=== PATIENT | male | born 1985 | race African-American/Black ===

== ENCOUNTER 2016-03-12 00:50 | Inpatient (IN) | payer BC ==
--- NOTE | 2016-03-12 00:55 | PDOC ---
History of Present Illness - General Chief Complaint: Hematuria Stated Complaint: "I HAVE BLOOD IN MY STOOL AND URINE" Time Seen by Provider: 03/12/16 00:55 History Source: Patient Exam Limitations: No Limitations - History of Present Illness Initial Comments: 03/12/16 01:00 This is a 31-year-old male who comes in complaining of hematuria and blood in his stool. Patient did said that he went to the gym 2 days ago did a very intense workout and the next day saw a little bit of discoloration of his urine but then today it was bloody appearing and when patient went to the bathroom and had a bowel movement along with the urine he was also concerned that there might be some blood in the stool. Patient denies any fever, chills, frequency, dysuria, abdominal pain. Patient denies history of similar episodes in the past. PAST MEDICAL HISTORY: no significant history PAST SURGICAL HISTORY: no significant history FAMILY HISTORY: no pertinant history SOCIAL HISTORY: Pt lives with family and is employed. MEDICATIONS: reviewed ALLERGIES: As per nursing notes Review of Systems General: No fevers or chills, no weakness, no weight loss HEENT: No change in vision. No sore throat,. No ear pain CardioVascular: No chest pain or shortness of breath Respiratory:No cough, or wheezing. Gastrointestinal: no nausea, vomitting, diarrhea or constipation, No rectal bleeding Genitourinary: No dysuria, hematuria, or frequency Musculoskeletal: No joint or muscle pain or swelling Neurologic: No headache, vertigo, dizziness or loss of consciousness Psychiatric: nor depression Skin: No rashes or easy bruising Endocrine: no increased thirst or abnormal weight change Allergic: no skin or latex allergy All other systems reviewed and normal Exam: General: Well-nourished well-developed individual, no acute distress HEENT: Throat: Normal, tonsils normal, no erythema or exudate Neck: Supple, no meningeal signs, no lymphadenopathy Eyes::Pupils equal reactive and round, extraocular motion intact Chest: Nontender to palpation Cardiac: S1-S2 normal, regular rate and rhythm, no murmurs rubs or gallops Respiratory: Lungs clear to auscultation bilateral Abdomen: Soft, nondistended, normal bowel sounds, nontender to palpation diffusely rectal: non tender brown stool. Extremities: Warm, dry, no cyanosis, clubbing, or edema Skin: No rashes Neuro: Alert and oriented x3, nonfocal exam, grossly intact, normal gait Psych: Normal mood and affect EKG normal sinus rhythm at a rate of 71, normal intervals no acute ST-T wave changes, normal EKG 03/12/16 04:10 Assessment and plan: This is a 31-year-old male who comes in planning of blood in his urine post a intense workout in the gym. Patient CPK is markedly elevated secondary to rhabdomyolysis from his workup. Patient's AST and ALT are also elevated secondary to the rhabdo. Patient had a troponin of 0.09 that was reported this likely is a false positive secondary to the rhabdo. Patient needs an admission for IV hydration. Patient will be admitted to the hospitalist service Past History - Past Medical History Allergies/Adverse Reactions: Allergies Allergy/AdvReac Type Severity Reaction Status Date / Time No Known Allergies Allergy Unverified 03/01/15 19:21 Home Medications: Ambulatory Orders Ibuprofen [Motrin -] 800 mg PO TID #30 tablet 02/28/15 - Immunization History Immunization Up to Date: Yes - Psycho/Social/Smoking Cessation Hx Anxiety: No Suicidal Ideation: No Smoking History: Current some day smoker Have you smoked in the past 12 months: Yes Number of Cigarettes Smoked Daily: 2 'Breaking Loose' booklet given: 02/28/15 Hx Alcohol Use: No Drug/Substance Use Hx: No Substance Use Type: None ED Treatment Course - LABORATORY CBC & Chemistry Diagram: 03/12/16 01:00 03/12/16 01:00 *DC/Admit/Observation/Transfer Diagnosis at time of Disposition: Hematuria Rhabdomyolysis Qualifiers: Rhabdomyolysis type: non-traumatic Qualified Code(s): M62.82 - Rhabdomyolysis - Discharge Dispostion Disposition: HOME Condition at time of disposition: Good Admit: Yes
[2016-03-12 00:58] VITALS: BMI 34.7
[2016-03-12 02:16] LABS: BASOPHIL 0.3 % (0-2.0); EOSINOPHIL 1.2 % (0-4.5); MCH 29.2 pg (25.7-33.7); MCHC 32.7 g/dl (32.0-35.9); MEAN CELL VOLUME 89.2 fl (80-96); MEAN PLT VOLUME 9.3 fl (7.5-11.1); NEUTROPHILS 66.3 % (42.8-82.8); PLATELET COUNT 284 K/MM3 (134-434); RDW 14.9 % (11.9-15.9); STOOL FOR OCCULT BLOOD NEGATIVE (NEGATIVE); WHITE BLOOD COUNT 9.3 K/mm3 (4.0-10.0)
[2016-03-12 02:19] LABS: URINE APPEARANCE CLEAR; URINE BILIRUBIN NEGATIVE (NEGATIVE); URINE COLOR AMBER; URINE GLUCOSE (UA) NEGATIVE (NEGATIVE); URINE KETONE NEGATIVE (NEGATIVE); URINE LEUK ESTERASE NEGATIVE (NEGATIVE); URINE NITRITE NEGATIVE (NEGATIVE); URINE UROBILINOGEN NEGATIVE E.U./dl (0.2-1.0)
[2016-03-12 02:27] LABS: URINE BLOOD 3+ (NEGATIVE); URINE PROTEIN 2+ (NEGATIVE)
[2016-03-12 02:39] LABS: ALBUMIN 3.9 g/dl (3.4-5.0); ANION GAP 11 (8-16); CALCIUM 8.6 mg/dL (8.5-10.1); CO2 28 mmol/L (21-32); CREATININE 0.9 mg/dL (0.7-1.3); GLUCOSE,RANDOM 94 mg/dL (74-106); SGPT/ALT 118 U/L (12-78)
[2016-03-12 02:45] LABS: ALK PHOS 77 U/L (45-117); BILIRUBIN,TOTAL 0.4 mg/dL (0.2-1.0); TOT PROT 7.5 g/dl (6.4-8.2)
[2016-03-12 02:51] LABS: SGOT/AST 1042 U/L (15-37)
[2016-03-12 03:03] LABS: TROPONIN I 0.09 ng/ml (0.00-0.05)
[2016-03-12] MEDS ORDERED: SODIUM CHLORIDE 1,000 ML IV ONE (03:59)
[2016-03-12 04:08] LABS: URINE BACTERIA RARE /hpf (NONE SEEN); URINE RBC 6 /hpf (0-3); URINE WBC 3 /hpf (3-5)
--- NOTE | 2016-03-12 07:50 | HP ---
CHIEF COMPLAINT: I thought I saw blood in my urine. It was dark. PCP: None HISTORY OF PRESENT ILLNESS: 31 year-old male with no significant PMH came to the ED with a complaint of seeing blood his urine. Two days ago he went to the gym, the first time in a long time, and did a high-intensity workout with weights for two hours. Twenty- four hours later he felt soreness in his chest, arms, and legs and attributed it to the workout. Later in the day (yesterday afternoon), he noticed his urine was dark brown. Today he thought he saw blood in his urine and when he had a bowel movement he thought he saw blood in the stool so he came to the ED. Patient denies performance enhancing drugs, steroids, or any type of illicit drug use. ER course was notable for: (1) CPK >80,000 (2) BUN 9, Cr 0.9 (3) NS x 2L bolus given Recent Travel: no PAST MEDICAL HISTORY: None reported PAST SURGICAL HISTORY: None reported Social History: Smoking: current smoker Alcohol: 3-4 times per week Drugs: marijuana Family History: Allergies No Known Allergies Allergy (Unverified 03/01/15 19:21) HOME MEDICATIONS: None REVIEW OF SYSTEMS CONSTITUTIONAL: Absent: fever, chills, diaphoresis, generalized weakness, malaise, loss of appetite, weight change HEENT: Absent: rhinorrhea, nasal congestion, throat pain, throat swelling, difficulty swallowing, mouth swelling, ear pain, eye pain, visual changes CARDIOVASCULAR: Absent: chest pain, syncope, palpitations, irregular heart rate, lightheadedness , peripheral edema RESPIRATORY: Absent: cough, shortness of breath, dyspnea with exertion, orthopnea, wheezing, stridor, hemoptysis GASTROINTESTINAL: Absent: abdominal pain, abdominal distension, nausea, vomiting, diarrhea, constipation, melena, hematochezia GENITOURINARY: Present: dark-colored urine Absent: dysuria, frequency, urgency, hesitancy, hematuria, flank pain, genital pain MUSCULOSKELETAL: Present: full-body myalgias Absent: arthralgia, joint swelling, back pain, neck pain SKIN: Absent: rash, itching, pallor HEMATOLOGIC/IMMUNOLOGIC: Absent: easy bleeding, easy bruising, lymphadenopathy, frequent infections ENDOCRINE: Absent: unexplained weight gain, unexplained weight loss, heat intolerance, cold intolerance NEUROLOGIC: Absent: headache, focal weakness or paresthesias, dizziness, unsteady gait, seizure, mental status changes, bladder or bowel incontinence PSYCHIATRIC: Absent: anxiety, depression, suicidal or homicidal ideation, hallucinations. PHYSICAL EXAMINATION Vital Signs - 24 hr 03/12/16 06:14 Temperature 98.0 F Pulse Rate 74 Respiratory 18 Rate Blood Pressure 135/74 GENERAL: Awake, alert, and fully oriented, in no acute distress. HEAD: Normal with no signs of trauma. EYES: Pupils equal, round and reactive to light, extraocular movements intact, sclera anicteric, conjunctiva clear. No lid lag. EARS, NOSE, THROAT: Ears normal, nares patent, oropharynx clear without exudates. Moist mucous membranes. NECK: Normal range of motion, supple without lymphadenopathy, JVD, or masses. LUNGS: Breath sounds equal, clear to auscultation bilaterally. No wheezes, and no crackles. No accessory muscle use. HEART: Regular rate and rhythm, normal S1 and S2 without murmur, rub or gallop. ABDOMEN: Soft, nontender, not distended, normoactive bowel sounds, no guarding, no rebound, no masses. No hepatomegaly or splenomegaly. MUSCULOSKELETAL: Normal range of motion at all joints. No bony deformities or tenderness. No CVA tenderness. UPPER EXTREMITIES: 2+ pulses, warm, well-perfused. No cyanosis. No clubbing. Cap refill <2 seconds. No peripheral edema. LOWER EXTREMITIES: 2+ pulses, warm, well-perfused. No calf tenderness. No peripheral edema. NEUROLOGICAL: Cranial nerves II-XII intact. Normal speech. Normal gait. ASSESSMENT/PLAN: 31 year-old man with no significant PMH admitted for severe exercise-induced rhabdomyolysis. Severe exercise-induced rhabdomyolysis --CPK > 80,000 but renal function is stable --received 2 L NS in ED, give 2 more L then continue @ 150mL/hr --strict I&OIs, UOP goal is 150-200mL/hr --urine studies ordered --US kidneys ordered --renal consult requested --serial troponins --cmp and CPK q12h F/E/N Fluids: NS @ 150mL/hr Electrolytes: replete as indicated Nutrition: regular diet DVT prophylaxis: oob, ambulation Dispo: continues to require inpatient care. Full Code. Visit type - Emergency Visit Emergency Visit: Yes ED Registration Date: 03/12/16 Care time: The patient presented to the Emergency Department on the above date and was hospitalized for further evaluation of their emergent condition. - New Patient This patient is new to me today: Yes Date on this admission: 03/13/16 - Critical Care Critical Care patient: No
[2016-03-12] MEDS ORDERED: SODIUM CHLORIDE 1,000 ML IV STA ×3 (07:55→22:39)
[2016-03-12] MEDS: SODIUM CHLORIDE 1,000 ML IV SCH (08:00)
[2016-03-12] MEDS ORDERED: HEPARIN NA (PORCINE) 5,000 UNITS/ML 1ML VIAL SQ SCH (10:00)
[2016-03-12 10:30] LABS: URINE MARIJUANA THC NEGATIVE ng/ml (CUTOFF=50)
[2016-03-12 14:33] LABS: BASOPHIL 0.2 % (0-2.0); EOSINOPHIL 2.2 % (0-4.5); MCH 28.3 pg (25.7-33.7); MEAN CELL VOLUME 88.6 fl (80-96); MEAN PLT VOLUME 8.5 fl (7.5-11.1); NEUTROPHILS 57.9 % (42.8-82.8); PLATELET COUNT 283 K/MM3 (134-434); RDW 14.1 % (11.9-15.9); WHITE BLOOD COUNT 7.9 K/mm3 (4.0-10.0)
[2016-03-12 14:53] LABS: ALBUMIN 3.5 g/dl (3.5-5.0); BILIRUBIN,DIRECT 0.1 mg/dl (0.0-0.2); BILIRUBIN,TOTAL 0.5 mg/dl (0.2-1.0); TOT PROT 6.4 g/dl (6.4-8.3)
[2016-03-12 15:00] LABS: ACTIVATED PTT 25.9 SECONDS (24.0-38.9)
[2016-03-12 15:01] LABS: TROPONIN I 0.02 ng/ml (0.00-0.05)
[2016-03-12 15:05] LABS: INR 1.27 (0.82-1.09); PROTHROMBIN TIME (PATIENT) 13.8 SEC (10.2-13.0)
[2016-03-12 15:27] LABS: MAGNESIUM 1.7 mg/dL (1.8-2.4)
[2016-03-12 20:31] LABS: CALCIUM 8.4 mg/dl (8.4-10.2); CREATININE 0.9 mg/dl (0.6-1.3); MAGNESIUM 1.9 mg/dL (1.8-2.4)
--- NOTE | 2016-03-12 23:26 | HOSP ---
Subjective - Review of Symptoms Events since last encounter: Hospitalist Encounter Notified by primary RN that the patient's CK level - 90076, increased from 37834 drawn earlier in the day. Patient received 3L NS bolus, currently on maintenance fluids. Per RN, patient voided 300ml straw colored urine at 2000, then 250ml yellow clear urine at 2300. Arrived to room, patient is alert and awake, reports muscle fatigue and pain. Denies CP and SOB Discussed case with Dr. Alexandre, will continue maintenance fluids, monitor urine output, and repeat CMP in am. Physical Examination Vital Signs: Vital Signs Temperature 98.5 F 03/12/16 22:48 Pulse Rate 57 L 03/12/16 22:48 Respiratory Rate 18 03/12/16 22:48 Blood Pressure 135/82 03/12/16 22:48 O2 Sat by Pulse Oximetry (%) 99 03/12/16 22:48 Constitutional: Yes: Well Nourished, No Distress, Calm Respiratory: Yes: WNL, Regular, CTA Bilaterally Gastrointestinal: Yes: Hypoactive Bowel Sounds, Tenderness (generalized) Renal/: Yes: CVA Tenderness - Left Musculoskeletal: Yes: Muscle Pain Neurological: Yes: WNL, Alert, Oriented, Cran Nerves II-XII Intact Psychiatric: Yes: WNL, Alert, Oriented Labs: CBC, BMP 03/12/16 14:10 03/12/16 20:00 Laboratory Results - last 24 hr 03/12/16 03/12/16 03/12/16 01:00 01:00 01:00 WBC 9.3 RBC 4.88 Hgb 14.2 Hct 43.5 MCV 89.2 MCHC 32.7 RDW 14.9 Plt Count 284 MPV 9.3 Neutrophils % 66.3 Lymphocytes % 25.4 Monocytes % 6.8 Eosinophils % 1.2 Basophils % 0.3 INR PTT (Actin FS) Sodium 142 Potassium 3.9 Chloride 103 Carbon Dioxide 28 Anion Gap 11 BUN 9 Creatinine 0.9 Creat Clearance w eGFR > 60 Random Glucose 94 Lactic Acid Calcium 8.6 Magnesium Total Bilirubin 0.4 Direct Bilirubin AST 1042 H ALT 118 H Alkaline Phosphatase 77 Creatine Kinase Troponin I Total Protein 7.5 Albumin 3.9 Urine Color Jackie Urine Appearance Clear Urine pH 6.0 Ur Specific [place] 1.010 Urine Protein 2+ H Urine Glucose (UA) Negative Urine Ketones Negative Urine Blood 3+ H Urine Nitrite Negative Urine Bilirubin Negative Urine Urobilinogen Negative Ur Leukocyte Esterase Negative Urine RBC 6 Urine WBC 3 Urine Bacteria Rare Ur Random Sodium Ur Random Potassium Ur Random Chloride Urine Creatinine Stool Occult Blood Negative Opiates Screen Methadone Screen Barbiturate Screen Phencyclidine Screen Ur Amphetamines Screen MDMA (Ecstasy) Screen Benzodiazepines Screen Cocaine Screen U Marijuana (THC) Screen 03/12/16 03/12/16 03/12/16 01:00 08:15 08:40 WBC RBC Hgb Hct MCV MCHC RDW Plt Count MPV Neutrophils % Lymphocytes % Monocytes % Eosinophils % Basophils % INR PTT (Actin FS) Sodium Potassium Chloride Carbon Dioxide Anion Gap BUN Creatinine Creat Clearance w eGFR Random Glucose Lactic Acid Calcium Magnesium Total Bilirubin Direct Bilirubin AST ALT Alkaline Phosphatase Creatine Kinase 94955 H Troponin I 0.09 H 0.04 Total Protein Albumin Urine Color Urine Appearance Urine pH Ur Specific [place] Urine Protein Urine Glucose (UA) Urine Ketones Urine Blood Urine Nitrite Urine Bilirubin Urine Urobilinogen Ur Leukocyte Esterase Urine RBC Urine WBC Urine Bacteria Ur Random Sodium Ur Random Potassium Ur Random Chloride Urine Creatinine Stool Occult Blood Opiates Screen Negative Methadone Screen Negative Barbiturate Screen Negative Phencyclidine Screen Negative Ur Amphetamines Screen Negative MDMA (Ecstasy) Screen Negative Benzodiazepines Screen Negative Cocaine Screen Negative U Marijuana (THC) Screen Negative 03/12/16 03/12/16 03/12/16 14:10 14:10 14:10 WBC 7.9 RBC 4.65 Hgb 13.2 Hct 41.2 MCV 88.6 MCHC 32.0 RDW 14.1 Plt Count 283 MPV 8.5 Neutrophils % 57.9 Lymphocytes % 31.1 Monocytes % 8.6 Eosinophils % 2.2 Basophils % 0.2 INR 1.27 H PTT (Actin FS) 25.9 L Sodium Potassium Chloride Carbon Dioxide Anion Gap BUN Creatinine Creat Clearance w eGFR Random Glucose Lactic Acid Calcium Magnesium 1.7 L Total Bilirubin Direct Bilirubin AST ALT Alkaline Phosphatase Creatine Kinase 34596 H Troponin I 0.02 D Total Protein Albumin Urine Color Urine Appearance Urine pH Ur Specific [place] Urine Protein Urine Glucose (UA) Urine Ketones Urine Blood Urine Nitrite Urine Bilirubin Urine Urobilinogen Ur Leukocyte Esterase Urine RBC Urine WBC Urine Bacteria Ur Random Sodium Ur Random Potassium Ur Random Chloride Urine Creatinine Stool Occult Blood Opiates Screen Methadone Screen Barbiturate Screen Phencyclidine Screen Ur Amphetamines Screen MDMA (Ecstasy) Screen Benzodiazepines Screen Cocaine Screen U Marijuana (THC) Screen 03/12/16 03/12/16 03/12/16 14:10 14:10 20:00 WBC RBC Hgb Hct MCV MCHC RDW Plt Count MPV Neutrophils % Lymphocytes % Monocytes % Eosinophils % Basophils % INR PTT (Actin FS) Sodium 137 Potassium 4.0 Chloride 105 Carbon Dioxide 29 H Anion Gap 3 L BUN 8 Creatinine 0.9 Creat Clearance w eGFR Random Glucose 114 H Lactic Acid 1.265 Calcium 8.4 Magnesium 1.9 Total Bilirubin 0.5 Direct Bilirubin 0.1 AST 923 H ALT 126 H Alkaline Phosphatase 58 Creatine Kinase Troponin I Total Protein 6.4 Albumin 3.5 Urine Color Urine Appearance Urine pH Ur Specific [place] Urine Protein Urine Glucose (UA) Urine Ketones Urine Blood Urine Nitrite Urine Bilirubin Urine Urobilinogen Ur Leukocyte Esterase Urine RBC Urine WBC Urine Bacteria Ur Random Sodium Ur Random Potassium Ur Random Chloride Urine Creatinine Stool Occult Blood Opiates Screen Methadone Screen Barbiturate Screen Phencyclidine Screen Ur Amphetamines Screen MDMA (Ecstasy) Screen Benzodiazepines Screen Cocaine Screen U Marijuana (THC) Screen 03/12/16 03/12/16 23:15 23:15 WBC RBC Hgb Hct MCV MCHC RDW Plt Count MPV Neutrophils % Lymphocytes % Monocytes % Eosinophils % Basophils % INR PTT (Actin FS) Sodium Potassium Chloride Carbon Dioxide Anion Gap BUN Creatinine Creat Clearance w eGFR Random Glucose Lactic Acid Calcium Magnesium Total Bilirubin Direct Bilirubin AST ALT Alkaline Phosphatase Creatine Kinase Troponin I Total Protein Albumin Urine Color Urine Appearance Urine pH Ur Specific [place] Urine Protein Urine Glucose (UA) Urine Ketones Urine Blood Urine Nitrite Urine Bilirubin Urine Urobilinogen Ur Leukocyte Esterase Urine RBC Urine WBC Urine Bacteria Ur Random Sodium 148 Ur Random Potassium 8.4 Ur Random Chloride 150 Urine Creatinine 85.5 Stool Occult Blood Opiates Screen Methadone Screen Barbiturate Screen Phencyclidine Screen Ur Amphetamines Screen MDMA (Ecstasy) Screen Benzodiazepines Screen Cocaine Screen U Marijuana (THC) Screen Current Medications Generic Name Dose Route Start Last Admin Trade Name Freq PRN Reason Stop Dose Admin Sodium Chloride 1,000 mls @ 150 mls/hr 03/12/16 08:30 03/12/16 08:00 Normal Saline - IV 150 mls/hr ASDIR DENYS Administration
[2016-03-12 23:33] LABS: URINE CREATININE 85.5 mg/dL
[2016-03-13 07:09] LABS: BASOPHIL 0.2 % (0-2.0); EOSINOPHIL 3.4 % (0-4.5); MCH 28.9 pg (25.7-33.7); MCHC 32.6 g/dl (32.0-35.9); MEAN CELL VOLUME 88.8 fl (80-96); MEAN PLT VOLUME 8.9 fl (7.5-11.1); PLATELET COUNT 218 K/MM3 (134-434); RDW 13.9 % (11.9-15.9); WHITE BLOOD COUNT 6.5 K/mm3 (4.0-10.0)
[2016-03-13 07:39] LABS: ALBUMIN 3.1 g/dl (3.5-5.0); ALK PHOS 48 U/L (32-92); ANION GAP 6 (8-16); BILIRUBIN,TOTAL 0.7 mg/dl (0.2-1.0); CALCIUM 8.3 mg/dl (8.4-10.2); CO2 25 mmol/L (22-28); CREATININE 0.7 mg/dl (0.6-1.3); GLUCOSE,RANDOM 102 mg/dl (74-106); MAGNESIUM 1.6 mg/dL (1.8-2.4); PHOSPHOROUS 3.6 mg/dl (2.5-4.6); SGPT/ALT 136 U/L (10-40); TOT PROT 5.4 g/dl (6.4-8.3)
[2016-03-13 08:26] LABS: SGOT/AST 876 U/L (10-42)
[2016-03-13] MEDS: SODIUM CHLORIDE 1,000 ML IV SCH (08:35)
[2016-03-13] MEDS ORDERED: MAGNESIUM SULF 50% (8.12 MEQ/2 ML-1 GM VIAL) IVPB ONE (10:30)
--- NOTE | 2016-03-13 10:37 | CONSULT ---
Consult - text type - Consultation Consultation Note: Renal Consult for Rhabdomyolysis. This is a 31 year old Gentleman who is a current smoker but w/o any other significant past medical history who presented with diffuse muscle pain and found to have Rhabdomyolyisis with CK >10779. Pt s/p 2.5 hours of exertional exsercise (first time in 1 year). Denies any medications or drug use. Intially urine was very dark but now improved. No chest pain or sob.No fever or chills. No MAI,confuison,lethargy,weakness,N/V/D. PMhx:as above Allergies:NKDA Family Hx: NC Social Hx:No T/A/D ROS:as per HPI, all other pertinent ros negative Home Meds: None Vital Signs Temperature 97.9 F 03/13/16 05:44 Pulse Rate 66 03/13/16 05:44 Respiratory Rate 20 03/13/16 05:44 Blood Pressure 125/71 03/13/16 05:44 O2 Sat by Pulse Oximetry (%) 96 03/13/16 05:44 Intake & Output 03/10/16 03/11/16 03/12/16 03/13/16 23:59 23:59 23:59 23:59 Intake Total 4300 3000 Output Total 300 2600 Balance 4000 400 Weight 284 lb 15.865 oz Gen: NAD, awake and alert HEENT: NC/AT,MMM, No JVD,Neck Supple CVS:RRR, NO M/R Lungs:CTA, no rales or wheeze Abd: Soft NT/ND Ext:No edema,clubbing or cyanosis :No bladder distension CBC, BMP 03/13/16 06:00 03/13/16 06:00 Laboratory Tests 03/13/16 06:00 Calcium 8.3 L Phosphorus 3.6 Magnesium 1.6 L Albumin 3.1 L Current Medications Sodium Chloride (Normal Saline -) 1,000 mls @ 150 mls/hr IV ASDIR [facility] Last Admin: 03/12/16 08:00 Dose: 150 mls/hr A/P 31 year old Gentleman who is a current smoker but w/o any other significant past medical history who presented with diffuse muscle pain and found to have Rhabdomyolyisis with CK >04577. #Acute Exertional Rhabdomyolysis Likely related to large amount of exercise but will need to r/o metabolic myopathies, carnitine deficiency, toxin exposure Check Urine Tox Screen Trend BMP and CK Levels Q12h Continue aggressive IVF to maintain urine output ~150-200cc per hour Repeat UA in AM Trend Ca and Phos continue Normal saline for now but if serum bicarb less then 20 can switch fluids to 1/2NS + 75meq of Sodium Bicarb #Hyponatremia from fluid infusions however pt appears evolemic Trend Na #Hypomagnesemia GIve Mg Sulfate 2g IV Thank you Will follow Maury Alexandre DO
--- NOTE | 2016-03-13 10:53 | PN ---
Physical Exam: SUBJECTIVE: Patient seen and examined. Feels slightly better but still fatigued. OBJECTIVE: Vital Signs Period Temp Pulse Resp BP Sys/Grace Pulse Ox Last 24 Hr 97.9 F-98.5 F 57-66 18-20 125-141/71-91 96-100 GENERAL: The patient is awake, alert, and fully oriented, in no acute distress. HEAD: Normal with no signs of trauma. EYES: PERRL, extraocular movements intact, sclera anicteric, conjunctiva clear. No ptosis. LUNGS: Breath sounds equal, clear to auscultation bilaterally, no wheezes, no crackles, no accessory muscle use. HEART: Regular rate and rhythm, S1, S2 without murmur, rub or gallop. ABDOMEN: Soft, nontender, nondistended, normoactive bowel sounds, no guarding, no rebound, no hepatosplenomegaly, no masses. EXTREMITIES: 2+ pulses, warm, well-perfused, no edema. NEUROLOGICAL: Cranial nerves II through XII grossly intact. Normal speech, gait not observed. Laboratory Results - last 24 hr 03/12/16 03/12/16 03/12/16 14:10 14:10 14:10 WBC 7.9 RBC 4.65 Hgb 13.2 Hct 41.2 MCV 88.6 MCHC 32.0 RDW 14.1 Plt Count 283 MPV 8.5 Neutrophils % 57.9 Lymphocytes % 31.1 Monocytes % 8.6 Eosinophils % 2.2 Basophils % 0.2 INR 1.27 H PTT (Actin FS) 25.9 L Sodium Potassium Chloride Carbon Dioxide Anion Gap BUN Creatinine Creat Clearance w eGFR Random Glucose Lactic Acid Calcium Phosphorus Magnesium 1.7 L Total Bilirubin Direct Bilirubin AST ALT Alkaline Phosphatase Creatine Kinase 33198 H Troponin I 0.02 D Total Protein Albumin U Random Total Protein Ur Random Sodium Ur Random Potassium Ur Random Chloride Urine Creatinine Protein/Creatinin Ratio 03/12/16 03/12/16 03/12/16 14:10 14:10 20:00 WBC RBC Hgb Hct MCV MCHC RDW Plt Count MPV Neutrophils % Lymphocytes % Monocytes % Eosinophils % Basophils % INR PTT (Actin FS) Sodium 137 Potassium 4.0 Chloride 105 Carbon Dioxide 29 H Anion Gap 3 L BUN 8 Creatinine 0.9 Creat Clearance w eGFR Random Glucose 114 H Lactic Acid 1.265 Calcium 8.4 Phosphorus Magnesium 1.9 Total Bilirubin 0.5 Direct Bilirubin 0.1 AST 923 H ALT 126 H Alkaline Phosphatase 58 Creatine Kinase Troponin I Total Protein 6.4 Albumin 3.5 U Random Total Protein Ur Random Sodium Ur Random Potassium Ur Random Chloride Urine Creatinine Protein/Creatinin Ratio 03/12/16 03/12/16 03/13/16 23:15 23:15 06:00 WBC 6.5 RBC 4.15 Hgb 12.0 Hct 36.9 MCV 88.8 MCHC 32.6 RDW 13.9 Plt Count 218 D MPV 8.9 Neutrophils % 53.0 Lymphocytes % 32.9 Monocytes % 10.5 H Eosinophils % 3.4 Basophils % 0.2 INR PTT (Actin FS) Sodium Potassium Chloride Carbon Dioxide Anion Gap BUN Creatinine Creat Clearance w eGFR Random Glucose Lactic Acid Calcium Phosphorus Magnesium Total Bilirubin Direct Bilirubin AST ALT Alkaline Phosphatase Creatine Kinase Troponin I Total Protein Albumin U Random Total Protein 35 H Ur Random Sodium 148 Ur Random Potassium 8.4 Ur Random Chloride 150 Urine Creatinine 85.5 Protein/Creatinin Ratio 0.4 03/13/16 06:00 WBC RBC Hgb Hct MCV MCHC RDW Plt Count MPV Neutrophils % Lymphocytes % Monocytes % Eosinophils % Basophils % INR PTT (Actin FS) Sodium 135 L Potassium 4.0 Chloride 104 Carbon Dioxide 25 Anion Gap 6 L BUN 7 Creatinine 0.7 D Creat Clearance w eGFR > 60 Random Glucose 102 Lactic Acid Calcium 8.3 L Phosphorus 3.6 Magnesium 1.6 L Total Bilirubin 0.7 D Direct Bilirubin AST 876 H ALT 136 H Alkaline Phosphatase 48 Creatine Kinase Troponin I Total Protein 5.4 L Albumin 3.1 L U Random Total Protein Ur Random Sodium Ur Random Potassium Ur Random Chloride Urine Creatinine Protein/Creatinin Ratio Active Medications Generic Name Dose Route Start Last Admin Trade Name Freq PRN Reason Stop Dose Admin Sodium Chloride 1,000 mls @ 150 mls/hr 03/12/16 08:30 03/12/16 08:00 Normal Saline - IV 150 mls/hr ASDIR [facility] Administration ASSESSMENT/PLAN: 31 year-old man with no significant PMH admitted for severe exercise-induced rhabdomyolysis. Severe exercise-induced rhabdomyolysis --CPK remains elevated > 88,000, renal function is stable --UOP is improved, putting out 200-300cc/hr --continue IV fluids @ 150mL/hr --US kidneys: possible bilateral nonobstructing calculi; no evidence of renal artery stenosis --Echo: unremarkable; negative troponins --cmp and CPK q12h --renal following Hypomagnesemia --repleted F/E/N Fluids: NS @ 150mL/hr Electrolytes: replete as indicated Nutrition: regular diet DVT prophylaxis: oob, ambulation Dispo: continues to require inpatient care. Full Code. Visit type - Emergency Visit Emergency Visit: Yes ED Registration Date: 03/12/16 Care time: The patient presented to the Emergency Department on the above date and was hospitalized for further evaluation of their emergent condition. - New Patient This patient is new to me today: No - Critical Care Critical Care patient: No
[2016-03-13 11:25] LABS: URINE APPEARANCE Clear; URINE BILIRUBIN Negative (NEGATIVE); URINE BLOOD 3+ (NEGATIVE); URINE COLOR YELLOW; URINE GLUCOSE (UA) Negative (NEGATIVE); URINE KETONE Negative (NEGATIVE); URINE LEUK ESTERASE Negative (NEGATIVE); URINE NITRITE Negative (NEGATIVE); URINE PROTEIN Negative (NEGATIVE); URINE UROBILINOGEN 0.2 E.U/dl (0.2-1.0)
--- NOTE | 2016-03-13 11:44 | EKG ---
Test Reason : Blood Pressure : / mmHG Vent. Rate : 055 BPM Atrial Rate : 055 BPM P-R Int : 148 ms QRS Dur : 098 ms QT Int : 438 ms P-R-T Axes : 050 069 064 degrees QTc Int : 419 ms SINUS BRADYCARDIA INCOMPLETE RIGHT BUNDLE BRANCH BLOCK NONSPECIFIC T WAVE ABNORMALITY BORDERLINE ECG WHEN COMPARED WITH ECG OF 12-MAR-2016 04:05, (UNCONFIRMED) NO SIGNIFICANT CHANGE WAS FOUND Confirmed by FLORENCIO MADSEN, FLAQUITO ([id number]) on 03/13/2016 11:43:45 AM Referred By: ANTONIETTA GARCIA Overread By: FLAQUITO MATIAS MD
[2016-03-13 12:43] LABS: TROPONIN I (DFP) < 0.03 ng/ml (0.03-0.50)
[2016-03-13 12:55] LABS: THYROID STIMULATING HORMONE 1.37 uIU/ml (0.358-3.74)
[2016-03-13 14:46] LABS: CALCIUM 8.7 mg/dl (8.4-10.2); CREATININE 0.9 mg/dl (0.6-1.3)
[2016-03-13 16:04] LABS: CPK(DFH) 88484 IU/L (38-174)
[2016-03-13 18:56] LABS: ALBUMIN 3.7 g/dl (3.5-5.0); ALK PHOS 55 U/L (32-92); ANION GAP 8 (8-16); BILIRUBIN,TOTAL 0.6 mg/dl (0.2-1.0); CALCIUM 8.6 mg/dl (8.4-10.2); CO2 30 mmol/L (22-28); CREATININE 0.8 mg/dl (0.6-1.3); GLUCOSE,RANDOM 87 mg/dl (74-106); SGPT/ALT 180 U/L (10-40); TOT PROT 6.8 g/dl (6.4-8.3)
[2016-03-13 19:33] LABS: SGOT/AST > 285 U/L (10-42)
[2016-03-13 22:45] LABS: CPK(DFH) 29482 IU/L (38-174)
[2016-03-14] MEDS: SODIUM CHLORIDE 1,000 ML IV SCH ×2 (08:30→16:12)
[2016-03-14 08:57] LABS: ALBUMIN 3.5 g/dl (3.5-5.0); ALK PHOS 57 U/L (32-92); ANION GAP 5 (8-16); BILIRUBIN,TOTAL 0.9 mg/dl (0.2-1.0); CO2 31 mmol/L (22-28); CREATININE 0.8 mg/dl (0.6-1.3); GLUCOSE,RANDOM 99 mg/dl (74-106); MAGNESIUM 1.7 mg/dL (1.8-2.4); PHOSPHOROUS 3.1 mg/dl (2.5-4.6); SGPT/ALT 180 U/L (10-40); TOT PROT 6.4 g/dl (6.4-8.3)
[2016-03-14] MEDS ORDERED: MAGNESIUM SULF 50% (8.12 MEQ/2 ML-1 GM VIAL) IVPB ONE (09:30)
--- NOTE | 2016-03-14 09:33 | PN ---
Progress Note (short form) - Note Progress Note: Renal Follow up for Rhabdomyolysis Pt seen and examined at the bedside no acute complaints denies any muscle aches urine is clear Vital Signs Temperature 98.4 F 03/14/16 05:53 Pulse Rate 65 03/14/16 05:53 Respiratory Rate 19 03/14/16 05:53 Blood Pressure 132/78 03/14/16 05:53 O2 Sat by Pulse Oximetry (%) 100 03/14/16 05:53 Intake & Output 03/11/16 03/12/16 03/13/16 03/14/16 23:59 23:59 23:59 23:59 Intake Total 4300 5650 2250 Output Total 300 5250 1400 Balance 4000 400 850 Weight 284 lb 15.865 oz Gen: NAD, awake and alert CVS:RRR, NO M/R Lungs:CTA, no rales or wheeze Abd: Soft NT/ND Ext:No edema,clubbing or cyanosis CBC, BMP 03/13/16 06:00 03/14/16 07:30 03/13/16 03/14/16 03/14/16 18:07 07:30 07:30 Calcium 9.0 Phosphorus 3.1 Magnesium 1.7 L Creatine Kinase 85611 H D Pending Free Carnitine Total Carnitine Esterif/Free Carnitine 03/14/16 08:00 Calcium Phosphorus Magnesium Creatine Kinase Free Carnitine Pending Total Carnitine Pending Esterif/Free Carnitine Pending Current Medications Sodium Chloride (Normal Saline -) 1,000 mls @ 150 mls/hr IV ASDIR DENYS Last Admin: 03/13/16 08:35 Dose: 150 mls/hr Magnesium Oxide (Mag-Ox -) 400 mg PO BID DENYS Stop: 03/14/16 22:01 Magnesium Sulfate (Magnesium Sulfate) 2 gm IVPB ONCE ONE Stop: 03/14/16 09:31 A/P 31 year old Gentleman who is a current smoker but w/o any other significant past medical history who presented with diffuse muscle pain and found to have Rhabdomyolyisis with CK >48791. #Acute Exertional Rhabdomyolysis CK levels improved to 29K yesterday Todays levels pending continue current IVF If CK less then 10K can be discharged with oral hydration at home (~2.5-3L daily for next 2 days) To follow up in the office to trend renal function and CK and complete metabolic work up #Hypomagnesemia GIve Mg Sulfate 2g IV Thank you Will follow Maury Alexandre DO
[2016-03-14 09:50] LABS: SGOT/AST 940 U/L (10-42)
[2016-03-14] MEDS: MAGNESIUM OXIDE 400 MG TABLET (FP) PO SCH ×2 (10:41→21:28)
[2016-03-14 12:02] LABS: PH,URINE 7.5 (4.5-8); URINE APPEARANCE Clear; URINE BILIRUBIN Negative (NEGATIVE); URINE BLOOD Negative (NEGATIVE); URINE COLOR YELLOW; URINE GLUCOSE (UA) Negative (NEGATIVE); URINE KETONE Negative (NEGATIVE); URINE LEUK ESTERASE Negative (NEGATIVE); URINE NITRITE Negative (NEGATIVE); URINE PROTEIN Negative (NEGATIVE); URINE UROBILINOGEN 0.2 E.U/dl (0.2-1.0)
--- NOTE | 2016-03-14 12:27 | PN ---
Physical Exam: SUBJECTIVE: Patient seen and examined, denies any fever/chills, denies any muscle ache. OBJECTIVE: Last Vital Signs Temp Pulse Resp BP Pulse Ox 98.8 F 63 21 138/84 100 03/14/16 14:06 03/14/16 14:06 03/14/16 14:06 03/14/16 14:06 03/14/16 09:00 GENERAL: The patient is awake, alert, and fully oriented, in no acute distress. HEAD: Normal with no signs of trauma. EYES: PERRL, extraocular movements intact, sclera anicteric, conjunctiva clear. No ptosis. ENT: Ears normal, nares patent, oropharynx clear without exudates, moist mucous membranes. NECK: Trachea midline, full range of motion, supple. LUNGS: Breath sounds equal, clear to auscultation bilaterally, no wheezes, no crackles, no accessory muscle use. HEART: Regular rate and rhythm, S1, S2 without murmur, rub or gallop. ABDOMEN: Soft, nontender, nondistended, normoactive bowel sounds, no guarding, no rebound, no hepatosplenomegaly, no masses. EXTREMITIES: 2+ pulses, warm, well-perfused, no edema. NEUROLOGICAL: Cranial nerves II through XII grossly intact. Normal speech, gait not observed. PSYCH: Normal mood, normal affect. SKIN: Warm, dry, normal turgor, no rashes or lesions noted Laboratory Results - last 24 hr 03/13/16 03/13/16 03/13/16 06:00 06:00 11:10 Sodium Potassium Chloride Carbon Dioxide Anion Gap BUN Creatinine Creat Clearance w eGFR Random Glucose Calcium Phosphorus Magnesium Total Bilirubin AST ALT Alkaline Phosphatase Creatine Kinase Cancelled 99925 H CK-MB (CK-2) CK-MB (CK-2) Rel Index Troponin I < 0.03 L Total Protein Albumin TSH 1.37 Urine Color Urine Appearance Urine pH Ur Specific [place] Urine Protein Urine Glucose (UA) Urine Clinitest Urine Ketones Urine Blood Urine Nitrite Urine Bilirubin Urine Ictotest Prot Sulfosalicylic Acd Urine Urobilinogen Ur Leukocyte Esterase Urine RBC 5-8 Urine WBC 3-5 Ur Epithelial Cells 0-3 03/13/16 03/13/16 03/13/16 14:15 18:07 18:07 Sodium 136 136 Potassium 4.1 3.9 Chloride 100 98 Carbon Dioxide 30 H 30 H Anion Gap 6 L 8 BUN 8 10 D Creatinine 0.9 D 0.8 Creat Clearance w eGFR > 60 Random Glucose 101 87 Calcium 8.7 8.6 Phosphorus Magnesium Total Bilirubin 0.6 AST > 285 H D ALT 180 H D Alkaline Phosphatase 55 Creatine Kinase 43611 H D CK-MB (CK-2) 8.089 H CK-MB (CK-2) Rel Index 0.3 Troponin I Total Protein 6.8 D Albumin 3.7 TSH Urine Color Urine Appearance Urine pH Ur Specific [place] Urine Protein Urine Glucose (UA) Urine Clinitest Urine Ketones Urine Blood Urine Nitrite Urine Bilirubin Urine Ictotest Prot Sulfosalicylic Acd Urine Urobilinogen Ur Leukocyte Esterase Urine RBC Urine WBC Ur Epithelial Cells 03/14/16 03/14/16 03/14/16 06:50 07:30 11:55 Sodium 137 Potassium 4.5 Chloride 101 Carbon Dioxide 31 H Anion Gap 5 L BUN 10 Creatinine 0.8 Creat Clearance w eGFR > 60 Random Glucose 99 Calcium 9.0 Phosphorus 3.1 Magnesium 1.7 L Total Bilirubin 0.9 D AST 940 H D ALT 180 H Alkaline Phosphatase 57 Creatine Kinase CK-MB (CK-2) CK-MB (CK-2) Rel Index Troponin I Total Protein 6.4 Albumin 3.5 TSH Urine Color Cancelled Yellow Urine Appearance Cancelled Clear Urine pH Cancelled 7.5 Ur Specific [place] Cancelled 1.015 Urine Protein Cancelled Negative Urine Glucose (UA) Cancelled Negative Urine Clinitest Cancelled Urine Ketones Cancelled Negative Urine Blood Cancelled Negative Urine Nitrite Cancelled Negative Urine Bilirubin Cancelled Negative Urine Ictotest Cancelled Prot Sulfosalicylic Acd Cancelled Urine Urobilinogen Cancelled 0.2 e.u/dl Ur Leukocyte Esterase Cancelled Negative Urine RBC Urine WBC Ur Epithelial Cells Active Medications Generic Name Dose Route Start Last Admin Trade Name Freq PRN Reason Stop Dose Admin Sodium Chloride 1,000 mls @ 150 mls/hr 03/12/16 08:30 03/14/16 08:30 Normal Saline - IV 150 mls/hr ASDIR DENYS Administration Magnesium Oxide 400 mg 03/14/16 10:00 03/14/16 10:41 Mag-Ox - PO 03/14/16 22:01 400 mg BID DENYS Administration ASSESSMENT/PLAN: 1) Severe exercise-induced rhabdomyolysis --CPK had gotten down to 29,482, repeat level pending. renal function remains stable -R/o myositis, renal on board and is following -Cont aggressive IV hydration, strict I&O, urine clear yellow -Renal US: possible bilateral nephrolithiasis, no evidence of renal artery stenosis follow CPK trends. Hypomagnesemia: oral replacement given F/E/N Fluids: NS @ 150mL/hr Electrolytes: replete as indicated Nutrition: regular diet DVT prophylaxis: OOB,, ambulation Dispo: continues to require inpatient care. Full Code. Visit type - Emergency Visit Emergency Visit: Yes ED Registration Date: 03/12/16 Care time: The patient presented to the Emergency Department on the above date and was hospitalized for further evaluation of their emergent condition. - New Patient This patient is new to me today: Yes Date on this admission: 03/14/16 - Critical Care Critical Care patient: No - Discharge Referral Referred to [facility] Med P.C.: Yes
--- NOTE | 2016-03-14 14:20 | PN ---
Physical Exam: SUBJECTIVE: Patient seen and examined OBJECTIVE: Vital Signs Period Temp Pulse Resp BP Sys/Grace Pulse Ox Last 24 Hr 98.4 F-98.9 F 61-70 18-21 124-138/78-85 97-100 GENERAL: The patient is awake, alert, and fully oriented, in no acute distress. HEAD: Normal with no signs of trauma. EYES: PERRL, extraocular movements intact, sclera anicteric, conjunctiva clear. No ptosis. ENT: Ears normal, nares patent, oropharynx clear without exudates, moist mucous membranes. NECK: Trachea midline, full range of motion, supple. LUNGS: Breath sounds equal, clear to auscultation bilaterally, no wheezes, no crackles, no accessory muscle use. HEART: Regular rate and rhythm, S1, S2 without murmur, rub or gallop. ABDOMEN: Soft, nontender, nondistended, normoactive bowel sounds, no guarding, no rebound, no hepatosplenomegaly, no masses. EXTREMITIES: 2+ pulses, warm, well-perfused, no edema. NEUROLOGICAL: Cranial nerves II through XII grossly intact. Normal speech, gait not observed. PSYCH: Normal mood, normal affect. SKIN: Warm, dry, normal turgor, no rashes or lesions noted Laboratory Results - last 24 hr 03/13/16 03/13/16 03/13/16 06:00 14:15 18:07 Sodium 136 136 Potassium 4.1 3.9 Chloride 100 98 Carbon Dioxide 30 H 30 H Anion Gap 6 L 8 BUN 8 10 D Creatinine 0.9 D 0.8 Creat Clearance w eGFR > 60 Random Glucose 101 87 Calcium 8.7 8.6 Phosphorus Magnesium Total Bilirubin 0.6 AST > 285 H D ALT 180 H D Alkaline Phosphatase 55 Creatine Kinase 76879 H 96455 H D CK-MB (CK-2) 8.089 H CK-MB (CK-2) Rel Index Total Protein 6.8 D Albumin 3.7 Urine Color Urine Appearance Urine pH Ur Specific [place] Urine Protein Urine Glucose (UA) Urine Clinitest Urine Ketones Urine Blood Urine Nitrite Urine Bilirubin Urine Ictotest Prot Sulfosalicylic Acd Urine Urobilinogen Ur Leukocyte Esterase 03/13/16 03/14/16 03/14/16 18:07 06:50 07:30 Sodium 137 Potassium 4.5 Chloride 101 Carbon Dioxide 31 H Anion Gap 5 L BUN 10 Creatinine 0.8 Creat Clearance w eGFR > 60 Random Glucose 99 Calcium 9.0 Phosphorus 3.1 Magnesium 1.7 L Total Bilirubin 0.9 D AST 940 H D ALT 180 H Alkaline Phosphatase 57 Creatine Kinase CK-MB (CK-2) CK-MB (CK-2) Rel Index 0.3 Total Protein 6.4 Albumin 3.5 Urine Color Cancelled Urine Appearance Cancelled Urine pH Cancelled Ur Specific [place] Cancelled Urine Protein Cancelled Urine Glucose (UA) Cancelled Urine Clinitest Cancelled Urine Ketones Cancelled Urine Blood Cancelled Urine Nitrite Cancelled Urine Bilirubin Cancelled Urine Ictotest Cancelled Prot Sulfosalicylic Acd Cancelled Urine Urobilinogen Cancelled Ur Leukocyte Esterase Cancelled 03/14/16 11:55 Sodium Potassium Chloride Carbon Dioxide Anion Gap BUN Creatinine Creat Clearance w eGFR Random Glucose Calcium Phosphorus Magnesium Total Bilirubin AST ALT Alkaline Phosphatase Creatine Kinase CK-MB (CK-2) CK-MB (CK-2) Rel Index Total Protein Albumin Urine Color Yellow Urine Appearance Clear Urine pH 7.5 Ur Specific [place] 1.015 Urine Protein Negative Urine Glucose (UA) Negative Urine Clinitest Urine Ketones Negative Urine Blood Negative Urine Nitrite Negative Urine Bilirubin Negative Urine Ictotest Prot Sulfosalicylic Acd Urine Urobilinogen 0.2 e.u/dl Ur Leukocyte Esterase Negative Active Medications Generic Name Dose Route Start Last Admin Trade Name Freq PRN Reason Stop Dose Admin Sodium Chloride 1,000 mls @ 150 mls/hr 03/12/16 08:30 03/14/16 08:30 Normal Saline - IV 150 mls/hr ASDIR DENYS Administration Magnesium Oxide 400 mg 03/14/16 10:00 03/14/16 10:41 Mag-Ox - PO 03/14/16 22:01 400 mg BID DENYS Administration ASSESSMENT/PLAN:
[2016-03-14 18:29] LABS: URINE MARIJUANA THC NEGATIVE ng/ml (CUTOFF=50)
[2016-03-15 07:48] LABS: BASOPHIL 0.3 % (0-2.0); EOSINOPHIL 3.3 % (0-4.5); MCH 30.3 pg (25.7-33.7); MCHC 33.4 g/dl (32.0-35.9); MEAN CELL VOLUME 90.6 fl (80-96); MEAN PLT VOLUME 8.6 fl (7.5-11.1); NEUTROPHILS 57.4 % (42.8-82.8); PLATELET COUNT 232 K/MM3 (134-434); RDW 14.9 % (11.9-15.9); WHITE BLOOD COUNT 6.3 K/mm3 (4.0-10.0)
[2016-03-15 08:42] LABS: CALCIUM 8.3 mg/dl (8.4-10.2); CREATININE 0.8 mg/dl (0.6-1.3)
[2016-03-15 10:20] LABS: MAGNESIUM 2.1 mg/dL (1.8-2.4)
--- NOTE | 2016-03-15 11:58 | PN ---
Physical Exam: SUBJECTIVE: Patient seen and examined, denies any chest pain or SOB, denies any muscles ache, no reported discomfort. OBJECTIVE: 31 year old male who denies any significant past medical history presented to the ER with c/o diffuse muscle pain and found to have Rhabdomyolyisis with CK >80,000. Pt reports had about 2.5 hours of exertional exsercise (first time in 1 year). he denies any abdominal pain, N/N/D, he denies any history of drug use, he was thus admitted for further evaluation and management, renal has been consulted. Last Vital Signs Temp Pulse Resp BP Pulse Ox 98.6 F 62 20 136/74 99 03/15/16 06:31 03/15/16 06:31 03/15/16 06:31 03/15/16 06:03/15/16 06:31 GENERAL: The patient is awake, alert, and fully oriented, in no acute distress. HEAD: Normal with no signs of trauma. EYES: PERRL, extraocular movements intact, sclera anicteric, conjunctiva clear. No ptosis. ENT: Ears normal, nares patent, oropharynx clear without exudates, moist mucous membranes. NECK: Trachea midline, full range of motion, supple. LUNGS: Breath sounds equal, clear to auscultation bilaterally, no wheezes, no crackles, no accessory muscle use. HEART: Regular rate and rhythm, S1, S2 without murmur, rub or gallop. ABDOMEN: Soft, nontender, nondistended, normoactive bowel sounds, no guarding, no rebound, no hepatosplenomegaly, no masses. EXTREMITIES: 2+ pulses, warm, well-perfused, no edema. NEUROLOGICAL: Cranial nerves II through XII grossly intact. Normal speech, gait not observed. PSYCH: Normal mood, normal affect. SKIN: Warm, dry, normal turgor, no rashes or lesions noted Laboratory Results - last 24 hr 03/14/16 03/14/16 03/14/16 07:30 11:55 16:55 WBC RBC Hgb Hct MCV MCHC RDW Plt Count MPV Neutrophils % Lymphocytes % Monocytes % Eosinophils % Basophils % Sodium Potassium Chloride Carbon Dioxide Anion Gap BUN Creatinine Random Glucose Calcium Magnesium Creatine Kinase 62916 H Creatine Kinase Index CK-MB (CK-2) Urine Color Yellow Urine Appearance Clear Urine pH 7.5 Ur Specific [place] 1.015 Urine Protein Negative Urine Glucose (UA) Negative Urine Ketones Negative Urine Blood Negative Urine Nitrite Negative Urine Bilirubin Negative Urine Urobilinogen 0.2 e.u/dl Ur Leukocyte Esterase Negative Opiates Screen Negative Methadone Screen Negative Barbiturate Screen Negative Phencyclidine Screen Negative Ur Amphetamines Screen Negative MDMA (Ecstasy) Screen Negative Benzodiazepines Screen Negative Cocaine Screen Negative U Marijuana (THC) Screen Negative 03/14/16 03/15/16 03/15/16 21:00 07:00 07:00 WBC 6.3 D RBC 4.32 Hgb 13.1 Hct 39.2 MCV 90.6 MCHC 33.4 RDW 14.9 Plt Count 232 MPV 8.6 Neutrophils % 57.4 Lymphocytes % 30.6 D Monocytes % 8.4 Eosinophils % 3.3 D Basophils % 0.3 Sodium 142 Potassium 5.1 Chloride 105 Carbon Dioxide 30 H Anion Gap 7 L BUN 7 D Creatinine 0.8 Random Glucose 83 Calcium 8.3 L Magnesium 2.1 D Creatine Kinase 18610 H 01458 H D Creatine Kinase Index 0.0 CK-MB (CK-2) 4.207 H Urine Color Urine Appearance Urine pH Ur Specific [place] Urine Protein Urine Glucose (UA) Urine Ketones Urine Blood Urine Nitrite Urine Bilirubin Urine Urobilinogen Ur Leukocyte Esterase Opiates Screen Methadone Screen Barbiturate Screen Phencyclidine Screen Ur Amphetamines Screen MDMA (Ecstasy) Screen Benzodiazepines Screen Cocaine Screen U Marijuana (THC) Screen Active Medications Generic Name Dose Route Start Last Admin Trade Name Freq PRN Reason Stop Dose Admin Sodium Chloride 1,000 mls @ 200 mls/hr 03/14/16 16:00 03/14/16 16:12 Normal Saline - IV [facility]ls[facility] Administration ASSESSMENT/PLAN: 1) Severe exercise-induced rhabdomyolysis --CPK improving slowly at 40,177 this AM -utox negative renal function remains stable -R/o myositis, renal on board and is following -Cont aggressive IV hydration, strict I&O, urine clear yellow -Renal US: possible bilateral nephrolithiasis, no evidence of renal artery stenosis follow CPK trends. Hypomagnesemia:s/p oral replacement yesterday, resolved at 2.1 today, will cont ' monitor F/E/N Fluids: NS @ 200 ml/hr Electrolytes: replete as indicated Nutrition: regular diet DVT prophylaxis: OOB,, ambulation Dispo: continues to require inpatient care. Full Code. Visit type - Emergency Visit Emergency Visit: Yes ED Registration Date: 03/12/16 Care time: The patient presented to the Emergency Department on the above date and was hospitalized for further evaluation of their emergent condition. - New Patient This patient is new to me today: No - Critical Care Critical Care patient: No - Discharge Referral Referred to [facility] Med P.C.: Yes
[2016-03-15] MEDS: SODIUM CHLORIDE 1,000 ML IV SCH (16:14)
[2016-03-16 06:37] VITALS: BP 124/71; PULSE 64; TEMP 97.6
[2016-03-16 07:08] LABS: BASOPHIL 0.3 % (0-2.0); EOSINOPHIL 3.7 % (0-4.5); MCH 30.3 pg (25.7-33.7); MCHC 33.6 g/dl (32.0-35.9); MEAN CELL VOLUME 90.3 fl (80-96); MEAN PLT VOLUME 8.6 fl (7.5-11.1); NEUTROPHILS 58.1 % (42.8-82.8); PLATELET COUNT 237 K/MM3 (134-434); RDW 14.8 % (11.9-15.9); WHITE BLOOD COUNT 7.1 K/mm3 (4.0-10.0)
[2016-03-16 09:46] LABS: CREATININE 0.7 mg/dL (0.7-1.3)
[2016-03-16 09:47] LABS: CALCIUM 8.3 mg/dL (8.5-10.1)
--- NOTE | 2016-03-16 10:12 | PN ---
Progress Note (short form) - Note Progress Note: Renal Follow up for Rhabdomyolysis Pt seen and examined at the bedside no complaints urine is clear Vital Signs Temperature 97.6 F 03/16/16 06:35 Pulse Rate 64 03/16/16 06:35 Respiratory Rate 18 03/16/16 06:35 Blood Pressure 124/71 03/16/16 06:35 O2 Sat by Pulse Oximetry (%) 100 03/16/16 06:35 Intake & Output 03/13/16 03/14/16 03/15/16 03/16/16 23:59 23:59 23:59 23:59 Intake Total 5650 2900 6300 2400 Output Total 5250 3600 3300 600 Balance 400 -700 3000 1800 Gen: NAD, awake and alert CVS:RRR, NO M/R Lungs:CTA, no rales or wheeze Abd: Soft NT/ND Ext:No edema,clubbing or cyanosis CBC, BMP 03/16/16 06:00 03/16/16 06:00 A/P 31 year old Gentleman who is a current smoker but w/o any other significant past medical history who presented with diffuse muscle pain and found to have Rhabdomyolyisis with CK >83957. #Acute Rhabdomyolysis Ck Improved to 15K UA showed no blood, and urine is grossly clear no further muscle aches ok for discharge with office follow up this week avoid further exercise for now Fluid intake 2-3L daily Thank you for allowing us to take part in the care of this patient Maury Alexandre DO
--- NOTE | 2016-03-16 10:22 | DS ---
Physical Exam: SUBJECTIVE: Patient seen and examined, patient reports feeling better, denies any abdominal pain or muscle pain, patient is tolerating diet. OBJECTIVE: patient is a 31 year-old male with no significant PMH came to the ED with a complaint of seeing blood his urine. Two days ago he went to the gym, the first time in a long time, and did a high-intensity workout with weights for two hours. Twenty-four hours later he felt soreness in his chest, arms, and legs and attributed it to the workout. Later in the day (yesterday afternoon), he noticed his urine was dark brown. Today he thought he saw blood in his urine and when he had a bowel movement he thought he saw blood in the stool so he came to the ED. Patient denies performance enhancing drugs, steroids, or any type of illicit drug use. ER course was notable for: (1) CPK >80,000 (2) BUN 9, Cr 0.9 (3) NS x 2L bolus given Vital Signs Period Temp Pulse Resp BP Sys/Grace Pulse Ox Last 24 Hr 97.6 F-98.7 F 64-68 17-18 124-152/71-75 100-100 PHYSICAL EXAM GENERAL: The patient is awake, alert, and fully oriented, in no acute distress. HEAD: Normal with no signs of trauma. EYES: PERRL, extraocular movements intact, sclera anicteric, conjunctiva clear. ENT: Ears normal, nares patent, oropharynx clear without exudates, moist mucous membranes. NECK: Trachea midline, full range of motion, supple. LUNGS: Breath sounds equal, clear to auscultation bilaterally, no wheezes, no crackles, no accessory muscle use. HEART: Regular rate and rhythm, S1, S2 without murmur, rub or gallop. ABDOMEN: Soft, nontender, nondistended, normoactive bowel sounds, no guarding, no rebound, no hepatosplenomegaly, no masses. EXTREMITIES: 2+ pulses, warm, well-perfused, no edema. NEUROLOGICAL: Cranial nerves II through XII grossly intact. Normal speech, gait not observed. PSYCH: Normal mood, normal affect. SKIN: Warm, dry, normal turgor, no rashes or lesions noted. LABS Laboratory Results - last 24 hr 03/15/16 03/15/16 03/15/16 07:00 07:00 14:45 WBC RBC Hgb Hct MCV MCHC RDW Plt Count MPV Neutrophils % Lymphocytes % Monocytes % Eosinophils % Basophils % Sodium Potassium Chloride Carbon Dioxide Anion Gap BUN Creatinine Random Glucose Calcium Magnesium 2.1 D Creatine Kinase 53351 H Creatine Kinase Index 0.0 CK-MB (CK-2) 3.285 CK-MB (CK-2) Rel Index Cancelled 03/15/16 03/16/16 03/16/16 14:45 06:00 06:00 WBC 7.1 RBC 4.34 Hgb 13.2 Hct 39.2 MCV 90.3 MCHC 33.6 RDW 14.8 Plt Count 237 MPV 8.6 Neutrophils % 58.1 Lymphocytes % 30.5 Monocytes % 7.4 Eosinophils % 3.7 Basophils % 0.3 Sodium 142 Potassium 4.5 Chloride 107 Carbon Dioxide 32 Anion Gap 3 L BUN 7 D Creatinine 0.7 D Random Glucose 87 Calcium 8.3 L Magnesium Creatine Kinase 33791 H D Creatine Kinase Index 0.0 CK-MB (CK-2) 2.550 CK-MB (CK-2) Rel Index Cancelled 03/16/16 06:00 WBC RBC Hgb Hct MCV MCHC RDW Plt Count MPV Neutrophils % Lymphocytes % Monocytes % Eosinophils % Basophils % Sodium Potassium Chloride Carbon Dioxide Anion Gap BUN Creatinine Random Glucose Calcium Magnesium Creatine Kinase Creatine Kinase Index CK-MB (CK-2) CK-MB (CK-2) Rel Index Cancelled HOSPITAL COURSE: patient was admitted from the emergency department for Severe exercise-induced rhabdomyolysis. [place] [address] [place] [address]. creatine remained WNL. pt was given agressive IV hydration. Renal US: possible bilateral nephrolithiasis, no evidence of renal artery stenosis. Dr Alexandre (nephrology) was consulted and followed. Date of Admission:03/12/16 Date of Discharge: 03/16/16 Minutes to complete discharge: 45 Discharge Summary Reason For Visit: RHABDOMYOLYSIS,HEMATURIA Current Active Problems Hematuria (Acute) Rhabdomyolysis (Acute) Condition: Improved - Instructions Diet, Activity, Other Instructions: continue drinkinng 2 to 3L of fluid daily avoid further exercise please follow up with Dr Alexandre in the office by 03/20/16 if abdominal pain, back aches, or vomiting develops please return to the emergency department. Referrals: Maury Alexandre MD [Staff Physician] - Disposition: HOME This patient is new to me today: Yes Date on this admission: 03/16/16 Emergency Visit: Yes ED Registration Date: 03/12/16 Care time: The patient presented to the Emergency Department on the above date and was hospitalized for further evaluation of their emergent condition. Critical Care patient: No - Discharge Referral Referred to [facility] Med P.C.: No
--- NOTE | 2016-03-17 10:11 | EKG ---
Test Reason : Blood Pressure : / mmHG Vent. Rate : 059 BPM Atrial Rate : 059 BPM P-R Int : 154 ms QRS Dur : 096 ms QT Int : 406 ms P-R-T Axes : 059 066 059 degrees QTc Int : 401 ms SINUS BRADYCARDIA CANNOT RULE OUT INFERIOR INFARCT , AGE UNDETERMINED ABNORMAL ECG WHEN COMPARED WITH ECG OF 12-MAR-2016 14:58, NO SIGNIFICANT CHANGE WAS FOUND Confirmed by CAMILLA MADSEN, SURJIT ([id number]) on 03/17/2016 10:10:48 AM Referred By: ANTONIETTA GARCIA Overread By: SURJIT SAMPSON MD
--- NOTE | 2016-03-17 10:11 | EKG ---
Test Reason : Blood Pressure : / mmHG Vent. Rate : 071 BPM Atrial Rate : 071 BPM P-R Int : 146 ms QRS Dur : 092 ms QT Int : 412 ms P-R-T Axes : 065 062 053 degrees QTc Int : 447 ms NORMAL SINUS RHYTHM NORMAL ECG NO PREVIOUS ECGS AVAILABLE Confirmed by CAMILLA MADSEN, SURJIT ([id number]) on 03/17/2016 10:10:40 AM Referred By: DR VALLES Overread By: SURJIT SAMPSON MD
[2016-03-19 15:18] LABS: ESTERIFIED- FREE 0.8 Ratio (0.1-0.9)
== END 2016-03-16 12:46 | disposition home or self-care (01) | DRG 558 ==
LOC: FER 00:50 → FM/S 05:40 → OBSVTOIN 08:03 → FM/S 18:12
PROVIDERS: ADMIT Internal Medicine; ATTEND Nurse Practitioner Family
DX: M62.82 Rhabdomyolysis (principal); E87.1 Hypo-osmolality and hyponatremia; R31.9 Hematuria, unspecified; E83.42 Hypomagnesemia
CPT/HCPCS: 36415; 71020-TC; 76775-TC; 80048; 80053; 80076; 81003; 81015; 82272; 82379; 82436; 82550; 82553; 82570; 83605; 83735; 83874; 84100; 84133; 84156; 84300; 84443; 84484; 85025; 85610; 85660; 85730; 93005; 93010; 93306-TC; 93976; 99284-25; G0378; G0479

== ENCOUNTER 2018-12-30 08:43 | Emergency (ER) | payer BC ==
[2018-12-30 08:57] VITALS: BP 145/100; PULSE 77; TEMP 98.2; BMI 24.3
--- NOTE | 2018-12-30 09:13 | PDOC ---
Attending Attestation - Resident Resident Name: KwanChance - ED Attending Attestation I have performed the following: I have examined & evaluated the patient, The case was reviewed & discussed with the resident, I agree w/resident's findings & plan, Exceptions are as noted - HPI HPI: 12/30/18 09:15 Pain in the left TMJ for several months, worse in the morning when he just wakes up, subsides soon afterwards. No fever chills or other constitutional sxs. No trauma - Physicial Exam PE: 12/30/18 09:18 Alert, WDWN NAD Ears, oropharynx clear. No sign dental disease No nodes - Medical Decision Making 12/30/18 09:19 Imp: TMJ Plan: Anit-inflammatory, refer oral surgeon, ice mouthguard foe night recommended
--- NOTE | 2018-12-30 09:15 | PDOC ---
History of Present Illness - General Chief Complaint: Pain Stated Complaint: LEFT JAW PAIN FOR 2-3 WEEKS Time Seen by Provider: 12/30/18 09:08 History Source: Patient - History of Present Illness Initial Comments: 12/30/18 09:08 33 yo M PMH 1ppd smoker, presenting with atraumatic L jaw pain for the past 2 weeks. States that it is worst in the morning in the hour right after waking up , 10/10, but then resolves and becomes 1/10, triggered by chewing motions, associated with popping sensation of the jaw and pain at the TMJ. Has not tried any treatments such as ice or pain medication at home. States that he has known wisdom teeth in his L jaw, both upper and lower, but has not seen a dentist in about a year. Does notice that he has teeth grinding while awake. Denies N/V, F/C, MAI, ear pain. Past History - Past Medical History Allergies/Adverse Reactions: Allergies Allergy/AdvReac Type Severity Reaction Status Date / Time No Known Allergies Allergy Verified 12/30/18 08:45 Home Medications: Ambulatory Orders NK [No Known Home Medication] 12/30/18 COPD: No Psychiatric Problems: Yes (bipolar d/o) - Immunization History Immunization Up to Date: Yes - Psycho Social/Smoking Cessation Hx Smoking History: Current every day smoker Have you smoked in the past 12 months: Yes Number of Cigarettes Smoked Daily: 20 Information on smoking cessation initiated: No 'Breaking Loose' booklet given: 02/28/15 Hx Alcohol Use: Yes (3 TIMES /WEEK) Drug/Substance Use Hx: No Substance Use Type: None Review of Systems - Review of Systems Constitutional: No: Chills, Diaphoresis, Fever HEENTM: Yes: Other (TMJ pain). No: Recent change in vision, Ear Pain, Hearing Loss, Difficulty Swallowing Respiratory: No: Cough, Shortness of Breath Cardiac (ROS): No: Chest Pain, Edema, Irregular Heart Rate ABD/GI: No: Constipated, Diarrhea, Nausea, Vomiting : No: Burning Musculoskeletal: Yes: Joint Pain (TMJ). No: Back Pain, Joint Swelling, Muscle Weakness Neurological: No: Headache, Numbness, Tingling, Weakness *Physical Exam - Vital Signs Last Vital Signs Temp Pulse Resp BP Pulse Ox 98.2 F 77 16 145/100 100 12/30/18 08:44 12/30/18 08:44 12/30/18 08:44 12/30/18 08:44 12/30/18 08:44 - Physical Exam Comments: 12/30/18 09:16 Gen: well-developed, well-nourished, NAD Neuro: AAOX4, CN II-XII intact, FTN intact, EOMI, PERRLA, 5/5 strength, SILT HEENT: atraumatic, normocephalic, mild ttp at L TMJ Mouth: full ROM, missing tooth on L side, no signs of dental abscess or gingival infection Neck: trachea midline, supple CV: regular rate, regular rhythm, no murmurs, rubs, or gallops Pulm: CTA b/l, no wheezing Abd: soft, non-distended, non-tender MSK: full ROM, intact pulses Extr: no edema, no deformities Skin: warm, dry Medical Decision Making - Medical Decision Making 12/30/18 09:19 Appears to have TMJ v sleep-related bruxism v wisdom teeth pain. Recommended to patient that he see his dentist as soon as possible, as they can fit him for a mouthguard and potentially reduce his pain upon waking. Will further refer to our oral surgeon Dr. Gil. Recommend using NSAIDs as needed for pain, and may benefit from applying ice immediately upon waking. Discharge - Discharge Information Problems reviewed: Yes Clinical Impression/Diagnosis: Jaw pain Condition: Stable Disposition: HOME - Admission No - Follow up/Referral Referrals: Jhoan Gil [Staff Physician] - - Patient Discharge Instructions Patient Printed Discharge Instructions: TMJ Syndrome (Alternative Therapy), DI for Temporomandibular Disorder Additional Instructions: You were seen with jaw pain. This is likely due to TMJ, teeth grinding while sleeping, and/or wisdom teeth. Please see your dentist as soon as possible to be evaluated and potentially fitted for a mouthguard, which may help with your symptoms. We also gave you a referral to an oral surgeon, who may be able to help remove your wisdom teeth. Take ibuprofen as needed for pain. You may also benefit from applying ice, especially immediately upon waking. Follow up with your primary care doctor within 1 week. Return to the ED if you develop worsening pain. - Post Discharge Activity
== END 2018-12-30 10:01 | disposition home or self-care (01) ==
LOC: FER 08:43
DX: R68.84 Jaw pain (principal); F17.210 Nicotine dependence, cigarettes, uncomplicated; F31.9 Bipolar disorder, unspecified
CPT/HCPCS: 99282-25

== ENCOUNTER 2020-01-23 12:30 | Emergency (ER) | payer BC ==
[2020-01-23 12:37] VITALS: TEMP 99; BMI 32.5
[2020-01-23 13:49] VITALS: BP 148/110; PULSE 72
[2020-01-23] MEDS ORDERED: IBUPROFEN 600 MG TABLET (FP) PO ONE ×2 (13:55→14:02)
[2020-01-23] MEDS ORDERED: LIDOCAINE 5% TOPICAL PATCH TP ONE (13:55)
[2020-01-23] MEDS ORDERED: LIDOCAINE 5% TOPICAL PATCH ONE (14:02)
[2020-01-23] MEDS ORDERED: LIDOCAINE PATCH REMOVAL MC SCH (22:00)
== END 2020-01-23 14:15 | disposition home or self-care (01) ==
LOC: FER 12:30
DX: M54.2 Cervicalgia (principal); I10 Essential (primary) hypertension
CPT/HCPCS: 99283-25

== ENCOUNTER 2020-12-07 07:54 | Emergency (ER) | payer BC ==
[2020-12-07] MEDS ORDERED: DEXAMETHASONE SOD PHOSPHATE 10 MG/1 ML VIAL ONE (08:00)
[2020-12-07] MEDS ORDERED: IBUPROFEN 600 MG TABLET (FP) PO ONE ×2 (08:00→08:06)
[2020-12-07] MEDS ORDERED: DEXAMETHASONE SOD PHOSPHATE 10 MG/1 ML VIAL PO ONE (08:06)
[2020-12-07 08:11] VITALS: BP 157/111; PULSE 86; TEMP 99.1; BMI 32.5
[2020-12-07] MEDS ORDERED: AMOXICILLIN 500 MG CAPSULE (FP) PO ONE (08:30)
[2020-12-07] MEDS ORDERED: AMOXICILLIN 250 MG CAPSULE ONE (08:36)
== END 2020-12-07 09:33 | disposition home or self-care (01) ==
LOC: FER 07:54
DX: J03.90 Acute tonsillitis, unspecified (principal)
CPT/HCPCS: 87880; 99284-25; C9803; J1100; U0003; U0005